=== PATIENT | female | born 1980 | race Caucasian/White ===

== ENCOUNTER 2025-02-17 22:24 | Inpatient (IN) | payer BC ==
[~2025-02-17] VITALS: Ht 167.6 cm; Wt 64.9 kg
[2025-02-18 00:09] LABS: BASOPHILS % 0.5 % (0.0-2.0); EOSINOPHILS % 1.2 % (0.0-5.0); HEMATOCRIT. 35.8 % (36.0-48.0); HEMOGLOBIN. 12.5 g/dL (12.0-16.0); LYMPHOCYTES % 7.1 % (20.0-50.0); MEAN CORPUSCULAR HEMOGLOBIN 34.1 pg (28.0-32.0); MEAN CORPUSCULAR HGB CONC 34.9 g/dL (31.0-37.0); MEAN CORPUSCULAR VOLUME 97.9 fL (81.0-99.0); MEAN PLATELET VOLUME 8.8 fl (7.4-10.4); MONOCYTES % 5.8 % (2.0-8.0); NEUTROPHILS % 85.4 % (40.0-76.0); PLATELET 129 x1000/uL (130-400); RED BLOOD CELL COUNT 3.66 mill/uL (4.2-5.4); RED CELL DISTRIBUTION WIDTH 12.9 % (11.6-14.6); WHITE BLOOD COUNT 7.7 x1000/uL (4.5-11.0)
[2025-02-18] MEDS: KETOROLAC 30MG/ML VIAL IV STA (00:13)
[2025-02-18] MEDS: SODIUM CHLORIDE 0.9% 1,000 ML IV ONE (00:14)
[2025-02-18] MEDS: PHENYTOIN SODIUM 500 MG in SODIUM CHLORIDE 0.9% 50 ML IV ONE (00:14)
[2025-02-18 00:18] LABS: CHLORIDE 96 mEq/L (98-107); POTASSIUM 3.5 mEq/L (3.5-5.1); SODIUM 132 mEq/L (136-145)
[2025-02-18 00:19] LABS: CALCIUM 9.1 mg/dL (8.7-10.4); CARBON DIOXIDE 23 mEq/L (21-32)
[2025-02-18 00:24] LABS: CREATININE 0.6 mg/dL (0.6-1.0); GLUCOSE 97 mg/dL (70-105); UREA NITROGEN BLOOD < 5 mg/dL (9-23)
[2025-02-18 00:25] LABS: ETHANOL BLOOD < 10 mg/dL (<10)
[2025-02-18 00:45] LABS: HCG SCREEN NEGATIVE
[2025-02-18 01:14] LABS: CLARITY URINE CLEAR (CLEAR); COLOR URINE YELLOW (YELLOW); GLUCOSE URINE NEGATIVE (NEGATIVE); KETONES URINE 3+ (NEGATIVE); LEUKOCYTE ESTERASE URINE NEGATIVE (NEGATIVE); NITRITE URINE NEGATIVE (NEGATIVE); OCCULT BLOOD URINE NEGATIVE (NEGATIVE); PH URINE 5.5 (4.5-8.0); PROTEIN URINE 1+ (NEGATIVE); SPECIFIC GRAVITY URINE 1.016 (1.005-1.030); UROBILINOGEN URINE 0.2 E.U./dL (0.2-1.0)
[2025-02-18 01:15] LABS: *AMPHETAMINES SCREEN URINE NEGATIVE (NEGATIVE); *BARBITURATES SCREEN URINE NEGATIVE (NEGATIVE); *BENZODIAZEPINES SCREEN URINE NEGATIVE (NEGATIVE); *COCAINE SCREEN URINE NEGATIVE (NEGATIVE); CANNABINOID URINE SCREEN PRESUMPTIVE POSITIVE (NEGATIVE); ECSTASY MDMA SCREEN URINE NEGATIVE (NEGATIVE); METHADONE URINE SCREEN NEGATIVE (NEGATIVE); OPIATES URINE SCREEN NEGATIVE (NEGATIVE); PHENCYCLIDINE URINE SCREEN NEGATIVE (NEGATIVE)
[2025-02-18] MEDS ORDERED: LORAZEPAM 2MG/ML UD SYRINGE ONE (02:11)
[2025-02-18] MEDS ORDERED: PHENYTOIN SODIUM 500 MG in SODIUM CHLORIDE 0.9% 50 ML IV ONE (02:15)
[2025-02-18] MEDS ORDERED: LORAZEPAM 2MG/ML INJ IV ONE (02:15)
[2025-02-18] MEDS ORDERED: LORAZEPAM 2MG/ML UD SYRINGE IV NR (02:15)
[2025-02-18] MEDS: PHENYTOIN SODIUM 500 MG in SODIUM CHLORIDE 0.9% 50 ML IV NR (03:06)
[2025-02-18 04:00] LABS: SQUAMOUS EPITHELIAL CELL URINE FEW /lpf (RARE/1+)
[2025-02-18 04:02] LABS: RBC URINE 0-2 /hpf (0-2); WBC URINE 0-2 /hpf (0-2)
[2025-02-18 04:03] LABS: BACTERIA URINE NONE SEEN
[2025-02-18 08:00] VITALS: BP 95/71; PULSE 75; PULSE 76; RESP 18; RESP 20; TEMP 36.6; TEMP 37.1; O2SAT 97; O2SAT 98
[2025-02-18 09:01] VITALS: BP 104/67; PULSE 76; RESP 20; TEMP 36.6
[2025-02-18] MEDS ORDERED: KEPPSOL MT (10:21)
[2025-02-18] MEDS ORDERED: MORPHINE SULFATE 2 MG/ML INJ (NOT FOR IM USE) IV PRN (10:30)
[2025-02-18] MEDS ORDERED: ONDANSETRON HCL 4MG/2ML INJ IV PRN (10:30)
[2025-02-18] MEDS ORDERED: ACETAMINOPHEN 325MG TABLET PO PRN (10:30)
[2025-02-18] MEDS ORDERED: CLONIDINE 0.1MG TABLET PO PRN (10:30)
[2025-02-18] MEDS ORDERED: MAGNESIUM/ALUMINUM HYDROXIDE/SIMETHICONE 30ML UDC PO PRN (10:30)
[2025-02-18] MEDS ORDERED: ZOLPIDEM TARTRATE 5MG TABLET PO PRN (10:30)
[2025-02-18] MEDS ORDERED: LORAZEPAM 2MG/ML UD SYRINGE IV PRN (10:30)
[2025-02-18] MEDS ORDERED: NALOXONE HCL 0.4MG/ML VIAL IV PRN (10:45)
[2025-02-18] MEDS: LEVETIRACETAM 500MG/5ML CUP PO SCH (10:47)
[2025-02-18] MEDS: SODIUM CHLORIDE 0.9% 1,000 ML IV SCH (10:47)
[2025-02-18] MEDS: HYDROCODONE/ACETAMINOPHEN 5/325MG TABLET PO PRN (11:00)
[2025-02-18 12:18] VITALS: BP 112/67; PULSE 74; RESP 20; TEMP 37.2; O2SAT 98
[2025-02-18] MEDS: ENOXAPARIN 40MG/0.4ML SYR SUBCUT SCH (13:05)
[2025-02-18 16:21] VITALS: BP 117/83; PULSE 63; RESP 20; TEMP 36.1; O2SAT 100
[2025-02-18] MEDS ORDERED: LACO100T2 PO (17:28)
[2025-02-18 18:33] VITALS: BP 109/75; PULSE 68; TEMP 97.9; O2SAT 98
[2025-02-18] MEDS ORDERED: LEVETIRACETAM 500MG/5ML CUP PO SCH (21:00)
[2025-02-18] MEDS ORDERED: LACOSAMIDE 100MG TABLET PO SCH (21:00)
[2025-02-19] MEDS ORDERED: PANTOPRAZOLE SODIUM 40 MG/VIAL IV SCH (09:00)
== END 2025-02-18 17:55 | disposition home or self-care (01) | DRG 101 ==
LOC: ER 22:24 → 7WST 02-18 03:21 → EDBEDREQ 02-18 03:37 → EDBEDREQTM 02-18 03:37 → ENRESERV 02-18 04:04
PROVIDERS: ADMIT Internal Medicine; ATTEND Internal Medicine
DX: G40.909 Epilepsy, unspecified, not intractable, without status epilepticus (principal); R45.851 Suicidal ideations; F12.10 Cannabis abuse, uncomplicated; T42.6X5A Adverse effect of other antiepileptic and sedative-hypnotic drugs, initial encounter; F29 Unspecified psychosis not due to a substance or known physiological condition; Z91.148 Patient's other noncompliance with medication regimen for other reason; Z79.899 Other long term (current) drug therapy; Y92.89 Other specified places as the place of occurrence of the external cause
CPT/HCPCS: 36415; 80048; 80305; 80320; 81003; 84703; 85025; 99285; J1165; J1650; J1885; J2060; J7030; G0480